=== PATIENT | male | born 1955 | race Caucasian/White ===

== ENCOUNTER 2019-11-18 21:06 | Inpatient (IN) | payer MEDICAID ==
[~2019-11-18] VITALS: Ht 157.5 cm; Wt 52.6 kg
[2019-11-18 22:47] VITALS: BP 139/67
--- NOTE | 2019-11-18 23:00 | NUR ---
BEHAVIORAL HEALTH CONSULTANT NOTES: Pt transferred from [facility] via gurney accompanied by 2 seo marketing specialist. Pt transferred to bed, skin check done, head to toe assessment done. Pt refused bed bath at this time. A&Ox2, Brazilian speaking. Understands very little Czech. On room air, tolerating well. No SOB or resp distress noted. Breathing even and unlabored. RFA #22 patent and flushed. Dressing c/d/i. Pt admitted w/ zapata, patent and draining urine via gravity. Pt came w/ left calceneal and pelvic fractures. Per RN at [facility], no surgery at this time. Pt stated he is suicidal, with no plans as of now. kaiako kura tuarua and Dr. Ozuna made aware. VS: BP 98.9, P 88, RR 18, O2 99%, T 98.9. Safety measures in place. Will continue to monitor. Addendum: 11/19/19 at 0131 by MIGUEL TOMLIN RN On isolation for R/o TB
--- NOTE | 2019-11-18 23:20 | NUR ---
RN NOTE: Upon belongings check, pt noted to have $78.00 in tim. Pt refused to put in safe w/ underground supervisor. Stated he wants to keep it on his person. Pt came in with belonging bag with soiled, soaking wet clothes. Per pt, "ok to throw away dirty clothes because they're also ripped".
[2019-11-19] MEDS ORDERED: ONDANSETRON HCL/PF 4 MG/2 ML VIAL IVP PRN
[2019-11-19] MEDS ORDERED: ACETAMINOPHEN 325 MG TABLET PO PRN
[2019-11-19] MEDS ORDERED: MAGNESIUM HYDROXIDE 30 ML UDC PO PRN
[2019-11-19] MEDS ORDERED: MAG HYDROX/AL HYDROX/SIMETH 30 ML UDC PO PRN
[2019-11-19] MEDS ORDERED: Z GUARD REMEDY 2 OZ OINT TP PRN
[2019-11-19 04:00] VITALS: BP 135/61
[2019-11-19] MEDS ORDERED: ZOSYN IVPB 3.375 G in IV D5W 50ml IV ONE (04:00)
[2019-11-19] MEDS ORDERED: PIPERACILLIN /TAZOBACTAM 3.375 G VIAL IV ONE (04:13)
--- NOTE | 2019-11-19 05:46 | NUR ---
RN NOTE: Pt noted to be playing with his poop, throwing it on the floor and smearing it on self and sheets. Educated pt on appropriate behavior and use of the call light when he needs to. Confirmed understanding. Will continue to monitor.
--- NOTE | 2019-11-19 06:53 | NUR ---
RN CLOSING NOTES: No acute changes noted throughout shift. On isolation for R/O TB. Remains on room air. No SOB or resp distress noted. Breathing even and unlabored. IV site on RFA #22 patent and flushed. Dressing c/d/i. Kept clean/dry. All due meds given as ordered. Safety measures in place. Will endorse to oncoming nurse for PREM.
[2019-11-19 07:57] LABS: BASOPHILS % (AUTO) 0.3 % (0.0-2.0); HEMATOCRIT 25 % (39-51); HEMOGLOBIN 8.4 g/dL (13.5-17.5); LYMPHOCYTES # (AUTO) 1.5 /CMM (0.8-4.8); LYMPHOCYTES % (AUTO) 10.6 % (20.0-44.0); MEAN CORPUSCULAR HGB CONC 33 g/dl (31.0-36.0); MEAN CORPUSCULAR VOLUME 95 fL (80-96); MONOCYTES # (AUTO) 1.4 /CMM (0.1-1.30); MONOCYTES % (AUTO) 9.5 % (2.0-12.0); NEUTROPHILS # (AUTO) 11.3 /CMM (1.8-8.9); NEUTROPHILS % (AUTO) 78.6 % (43.0-81.0); PLATELET COUNT (AUTO) 231 /CMM (150-450); RED BLOOD CELL COUNT(AUTO) 2.64 MIL/uL (4.5-6.0); WHITE BLOOD COUNT (AUTO) 14.3 K/uL (4.3-11.0)
--- NOTE | 2019-11-19 08:00 | NUR ---
RN Opening note A&Ox2, Korean speaking. Understands very little Luxembourgish. On room air, tolerating well. No SOB or respiratory distress noted. Breathing even and unlabored. RFA #22 patent and flushed. Dressing clean and dry. Breakfast taken with good appetite. Pt w/ zapata cath, patent and draining urine via gravity. Denies any pain or discomfort. Safety measures intact. Will cont to monitor
[2019-11-19 08:22] LABS: CALCIUM, SERUM 8.4 mg/dL (8.5-10.1); MAGNESIUM 2.4 mg/dL (1.8-2.4); PHOSPHORUS 3.5 mg/dL (2.5-4.9); POTASSIUM 4.6 mmol/L (3.5-5.1)
[2019-11-19] MEDS: NICOTINE PATCH (14MG) 14 MG PATCH.TD24 TD SCH (09:42)
[2019-11-19 12:00] VITALS: BP 143/71
[2019-11-19] MEDS: PIPERACILLIN /TAZOBACTAM 4.5 G in IV D5W 50 ML IV SCH ×3 (13:53→23:26)
[2019-11-19] MEDS: HYDROCODONE/APAP 5/325MG TABLET PO PRN (13:54)
--- NOTE | 2019-11-19 19:30 | NUR ---
RN OPENING NOTE RECEIVED PATIENT IN BED, AO X 2-3, ANSWERS QUESTIONS APPROPRIATELY. ASKED IF HE STILL WANTS TO HURT HIS SELF, STATED NO. PATIENT IN NO S/SX OF ACUTE DISTRESS AT THIS TIME. NO SOB NOTED. PATIENT'S BREATHING IS EVEN AND UNLABORED, SATURATING >95% ON ROOM AIR, HR IS 89. NOTED IV SITE AT RFA G22 LEAKING, REMOVED AND REINSERTED ANOTHER IV LINE AT LEFT HAND G20, ASEPTIC TECHNIQUE WAS OBSERVED. STEVENS CATHETER CONNECTED TO URINE BAG IN PLACE, DRAINING TO A CLEAR, YELLOWISH URINE. NOTED LEFT FOOT WITH SPLINT AND IN FLEXED POSITION. SAFETY MEASURES IMPLEMENTED PER PROTOCOL. PATIENT BED ALARM IS ON. HEAD OF BED ELEVATED. BED IS LOCKED, IN LOWEST POSITION AND SIDE RAILS UP. CALL LIGHT WITHIN REACH OF THE PATIENT. WILL CONTINUE TO MONITOR AND REASSESS FOR ANY CHANGES.
[2019-11-19 20:00] VITALS: BP 130/70
[2019-11-20] MEDS: HYDROCODONE/APAP 5/325MG TABLET PO PRN ×3 (02:35→10:56)
[2019-11-20 04:00] VITALS: BP 138/72
[2019-11-20] MEDS: PIPERACILLIN /TAZOBACTAM 4.5 G in IV D5W 50 ML IV SCH ×3 (05:18→17:15)
--- NOTE | 2019-11-20 07:10 | NUR ---
RN CLOSING NOTE PATIENT REMAINS IN ROOM RESTING COMFORTABLY.NO SIGNS OF RESPIRATORY DISTRESS ON RA;TOLERATTING WELL SATURATING >95% SP02. NS INFUSING AT TKO ON THE LEFT HAND. PATIENT IS CLEAN, DRY AND COMFORTABLE THROUGHOUT THE SHIFT. ALL DUE MEDS ADMINISTERED ORDERED. SAFETY MEASURES IMPLEMENTED, NEGATIVE PRESSURE/AIRBORNE PRECAUTIONS MAINTAINED. ENDORSED TO CHARLIE BOLDEN FOR CONTINUATION OF CARE.
--- NOTE | 2019-11-20 07:30 | NUR ---
RN OPENING NOTE PATIENT REMAINS IN ROOM RESTING COMFORTABLY IN BED.NO SIGNS OF RESPIRATORY DISTRESS ON RA;TOLERATING WELL SATURATING >95% SP02. NS INFUSING AT TKO ON THE LEFT HAND. PATIENT IS CLEAN, DRY AND COMFORTABLE. SAFETY MEASURES IMPLEMENTED, NEGATIVE PRESSURE/AIRBORNE PRECAUTIONS MAINTAINED. WILL CONT TO MONITOR
[2019-11-20 07:38] LABS: BASOPHILS % (AUTO) 0.4 % (0.0-2.0); EOSINOPHILS % (AUTO) 2.2 % (0.0-6.0); HEMATOCRIT 28 % (39-51); HEMOGLOBIN 9.3 g/dL (13.5-17.5); LYMPHOCYTES # (AUTO) 2.2 /CMM (0.8-4.8); LYMPHOCYTES % (AUTO) 17.1 % (20.0-44.0); MEAN CORPUSCULAR HGB CONC 33 g/dl (31.0-36.0); MEAN CORPUSCULAR VOLUME 95 fL (80-96); MONOCYTES # (AUTO) 1.4 /CMM (0.1-1.30); MONOCYTES % (AUTO) 10.5 % (2.0-12.0); NEUTROPHILS % (AUTO) 69.8 % (43.0-81.0); PLATELET COUNT (AUTO) 325 /CMM (150-450); RED BLOOD CELL COUNT(AUTO) 2.99 MIL/uL (4.5-6.0); WHITE BLOOD COUNT (AUTO) 12.9 K/uL (4.3-11.0)
[2019-11-20 08:00] VITALS: BP 133/69
[2019-11-20 08:01] LABS: CALCIUM, SERUM 8.7 mg/dL (8.5-10.1); CREATININE 0.9 mg/dL (0.6-1.3); MAGNESIUM 2.4 mg/dL (1.8-2.4); PHOSPHORUS 4.7 mg/dL (2.5-4.9); POTASSIUM 4.3 mmol/L (3.5-5.1)
[2019-11-20] MEDS: NICOTINE PATCH (14MG) 14 MG PATCH.TD24 TD SCH (10:55)
[2019-11-20 12:00] VITALS: BP 130/68
[2019-11-20] MEDS: MORPHINE SULFATE INJ 2 MG/ML DISP.SYRIN IV PRN ×2 (16:06→20:59)
--- NOTE | 2019-11-20 19:21 | NUR ---
RN CLOSING NOTES: No acute changes noted throughout shift. On isolation for R/O TB. Remains on room air. No SOB or respirotory distress noted. Breathing even and unlabored. Nguyen cath draining with yellow urine. IV site on left hand patent and flushed. Dressing c/d/i. Kept clean/dry. All due meds given as ordered. Dinner taken with good appetite. Safety measures in place. endorsed to night custodian nurse Emiliano .
[2019-11-20 20:00] VITALS: BP 139/69
[2019-11-20 22:00] VITALS: BP 139/69
[2019-11-21] MEDS: PIPERACILLIN /TAZOBACTAM 4.5 G in IV D5W 50 ML IV SCH ×2 (00:10→05:14)
--- NOTE | 2019-11-21 03:57 | NUR ---
RN notes In bed watching TV with no distress noted, breathing even and unlabored. On room air with [id number] o 100%, tolerating well. Alert with episodes of confusion. Complaint of foot pain, morphine adminstered x 2, with relief. No significant change of condition. Needs attended. Kept clean and dry. Will endorse to am shift for continuity of care.
[2019-11-21 04:00] VITALS: BP 126/64
[2019-11-21] MEDS: MORPHINE SULFATE INJ 2 MG/ML DISP.SYRIN IV PRN (04:32)
[2019-11-21 06:43] LABS: BASOPHILS # (AUTO) 0.1 /CMM (0.0-0.2); BASOPHILS % (AUTO) 0.6 % (0.0-2.0); EOSINOPHILS % (AUTO) 1.7 % (0.0-6.0); HEMATOCRIT 26 % (39-51); HEMOGLOBIN 8.8 g/dL (13.5-17.5); LYMPHOCYTES # (AUTO) 1.7 /CMM (0.8-4.8); LYMPHOCYTES % (AUTO) 12.8 % (20.0-44.0); MEAN CORPUSCULAR HGB CONC 33 g/dl (31.0-36.0); MEAN CORPUSCULAR VOLUME 94 fL (80-96); MONOCYTES # (AUTO) 1.4 /CMM (0.1-1.30); MONOCYTES % (AUTO) 10.2 % (2.0-12.0); NEUTROPHILS # (AUTO) 10.1 /CMM (1.8-8.9); NEUTROPHILS % (AUTO) 74.7 % (43.0-81.0); PLATELET COUNT (AUTO) 389 /CMM (150-450); RED BLOOD CELL COUNT(AUTO) 2.78 MIL/uL (4.5-6.0); WHITE BLOOD COUNT (AUTO) 13.6 K/uL (4.3-11.0)
[2019-11-21 07:28] LABS: CALCIUM, SERUM 8.6 mg/dL (8.5-10.1); CREATININE 0.9 mg/dL (0.6-1.3); MAGNESIUM 2.3 mg/dL (1.8-2.4); PHOSPHORUS 3.6 mg/dL (2.5-4.9); POTASSIUM 3.9 mmol/L (3.5-5.1)
--- NOTE | 2019-11-21 08:00 | NUR ---
MS RN OPENING NOTES Received Patient resting in bed. A/O x 3, Peruvian speaking. VS stable with no acute distress. Breathing even and unlabored on room air with no respiratory distress. Patient stated tolerable pain on left leg. Left Leg immobilizer in place. Will continue to monitor and will intervene as ordered. 20g PIV on left hand intact, patent and flushing well. Nguyen Cath in place and patent. Safety precautions in place. Bed locked and set to lowest position with side rails x 2 up. All needs rendered at this time. Call light within reach. Will continue to monitor.
--- NOTE | 2019-11-21 08:24 | NUR ---
WOUND CARE CONSULT: REVIEWED CHART, NURSING DOCUMENTATION AND PHOTOS WHICH INDICATE LEFT FOOT DISCOLORATION WITH INTACT BLISTERS AND MULTIPLE SKIN LESIONS TO CHEST AREA AND LESION TO PUBIC AREA, PRESENT ON ADMISSION. DEFER TO MD FOR SKIN LESIONS. RN TO DISCUSS WITH MD TODAY. RECOMMEND DPM CONSULT FOR LEFT FOOT. DR HILL NOTIFIED OF CONSULT REQUEST. RECOMMENDATIONS MADE FOR SKIN PROTECTION. DISCUSSED WITH NURSING STAFF. MD IN AGREEMENT WITH PLAN OF CARE.
[2019-11-21] MEDS: NICOTINE PATCH (14MG) 14 MG PATCH.TD24 TD SCH (09:51)
[2019-11-21] MEDS ORDERED: PIPERACILLIN /TAZOBACTAM 3.375 G in IV D5W 100 ML IV SCH (13:00)
[2019-11-21] MEDS: HYDROCODONE/APAP 5/325MG TABLET PO PRN ×2 (13:31→19:49)
--- NOTE | 2019-11-21 18:33 | NUR ---
MS RN CLOSING NOTES Patient resting in bed. A/O x 3, French speaking. VS stable with no acute distress. Breathing even and unlabored on room air with no respiratory distress. Patient stated tolerable pain on left leg. Left Leg immobilizer in place. 20g PIV on left hand intact, patent and flushing well. Nguyen Cath in place and patent. Safety precautions in place. Bed locked and set to lowest position with side rails x 2 up. All needs rendered at this time. Call light within reach. Will endorse plan of care to oncoming shift.
--- NOTE | 2019-11-21 19:20 | NUR ---
RN OPENING NOTES RECEIVED PT RESTING IN BED. IN ISOLATION ROOM, AIRBORNE PRECAUTIONS IN PLACE R/O TB. PT SPEAKS PRIMARILY IRISH. COIN MACHINE ASSEMBLER UTILIZED. A/O X 2-3. PT OFTEN IS CONFUSED AND NEEDS REDIRECTION/REORIENTATION. ON ROOM AIR, NO SIGNS OR SYMPTOMS OF SOB OR RESP DISTRESS. LEFT LEG IS IMMOBILIZED. IV SITE LEFT HAND, FLUSHED AND PATENT. STEVENS CATHETER IN PLACE, DRAINING DARK YELLOW URINE. FREE OF SEDIMENT AND ODOR. PT HAS MONEY IN A PLASTIC BAG, WILL NOT LET ME COUNT IT. BUT SAYS THERES $83, BILLS AND COINS NOTED. PT IS ASKING FOR JELLO AND PAIN MEDICATION FOR LEG. BED LOCKED IN LOWEST POSITION WITH BED ALARM ON. CALL LIGHT WITHIN REACH. WILL CONTINUE TO MONITOR.
--- NOTE | 2019-11-21 19:52 | NUR ---
PT REQUEST PAIN MEDS FOR LEFT LEG/HEEL. C/O 11/18. REQUESTS [facility].
[2019-11-21 20:00] VITALS: BP 132/61
[2019-11-22] MEDS: HYDROCODONE/APAP 5/325MG TABLET PO PRN ×3 (02:43→21:51)
[2019-11-22 03:07] LABS: HIV SCRN 4G wRFX Non Reactive (Non Reactive)
[2019-11-22 04:00] VITALS: BP 146/67
--- NOTE | 2019-11-22 04:03 | NUR ---
WOUND TREATMENT PERFORMED ORDERED. ANOTHER ADRIAN REQUESTED PAIN C/O 08/18. WILL CONTINUE TO MONITOR.
[2019-11-22 06:52] LABS: CALCIUM, SERUM 8.3 mg/dL (8.5-10.1); CREATININE 0.9 mg/dL (0.6-1.3); MAGNESIUM 2.3 mg/dL (1.8-2.4); PHOSPHORUS 3.3 mg/dL (2.5-4.9); POTASSIUM 4.4 mmol/L (3.5-5.1)
[2019-11-22 06:53] LABS: BASOPHILS # (AUTO) 0.1 /CMM (0.0-0.2); BASOPHILS % (AUTO) 0.7 % (0.0-2.0); EOSINOPHILS % (AUTO) 2.1 % (0.0-6.0); HEMATOCRIT 25 % (39-51); HEMOGLOBIN 8.2 g/dL (13.5-17.5); LYMPHOCYTES # (AUTO) 1.9 /CMM (0.8-4.8); LYMPHOCYTES % (AUTO) 14.4 % (20.0-44.0); MEAN CORPUSCULAR HGB CONC 33 g/dl (31.0-36.0); MEAN CORPUSCULAR VOLUME 93 fL (80-96); MONOCYTES # (AUTO) 1.3 /CMM (0.1-1.30); MONOCYTES % (AUTO) 9.9 % (2.0-12.0); NEUTROPHILS # (AUTO) 9.8 /CMM (1.8-8.9); NEUTROPHILS % (AUTO) 72.9 % (43.0-81.0); PLATELET COUNT (AUTO) 454 /CMM (150-450); RED BLOOD CELL COUNT(AUTO) 2.66 MIL/uL (4.5-6.0); WHITE BLOOD COUNT (AUTO) 13.5 K/uL (4.3-11.0)
--- NOTE | 2019-11-22 07:41 | NUR ---
RN CLOSING NOTES PT IS RESTING IN BED. STILL IN AIRBORNE, NEG AIR FLOW ROOM. PENDING TB RESULTS. STILL ON ROOM AIR SATURATING WELL NO SIGNS OF SOB OR RESP DISTRESS AT THIS TIME. STILL A/O X2 AND STILL CONFUSED AT TIMES. NEEDS REORIENTATION. CITIZEN OF [place] SPEAKING PRIMARILY. CAN UNDERSTAND SOME ITALIAN. AIR TRAFFIC SUPERVISOR STILL USED. BED IS LOCKED IN LOWEST POSITION WILL CONTINUE TO MONITOR.
[2019-11-22] MEDS: NICOTINE PATCH (14MG) 14 MG PATCH.TD24 TD SCH (08:06)
--- NOTE | 2019-11-22 08:16 | NUR ---
RN OPENING NOTE Patient is resting in bed, A/O x2, showing no signs of acute distress or SOB, stable on RA. IV line in the the left hand #20g is clean and intact flushing well. Patient's left leg is immobilized at this time, c/o pain 09/18. Bed is in lowest position, side rails x3 in upright position, call light is within reach, fall safety and aspiration precautions enforced. Isolation precautions in place for r/o TB. Will continue with plan of care.
--- NOTE | 2019-11-22 10:30 | NUR ---
RN NOTE QTF GOLD POSITIVE RESULT Notified Dr. Sander CLEMENTE and [facility] infection control that patient is positive for TB quantiferon gold. Will call Dr. Negron ID. Charge nurse is aware. Will continue with plan of care.
--- NOTE | 2019-11-22 11:57 | NUR ---
Manager R D met with patient today to complete a psychosocial assessment. Reason for assessment is patient reportedly homeless. Per RN Note, patient is alert and oriented x2. SW to attempt to speak with the patient as patient is primarily Senegalese speaking and Senegalese is this SW primary language. Patient is positive for TB quanitfermichelle gold. SW to attempt to conduct this assessment following TB protocols. Addendum: 11/22/19 at 1205 by MICKY STALLINGS SW SW unable to speak to patient at this time. Will attempt to speak with patient again later in the day or tomorrow 11/22.
[2019-11-22 12:00] VITALS: BP 130/72
[2019-11-22] MEDS: MORPHINE SULFATE INJ 2 MG/ML DISP.SYRIN IV PRN ×2 (12:35→18:30)
--- NOTE | 2019-11-22 19:20 | NUR ---
RN CLOSING NOTE Patient is resting in bed, A/O x2, showing no signs of acute distress or SOB, stable on RA. IV line in the the left hand #20g is clean and intact flushing well. Patient's left leg is immobilized at this time. All patient needs met, all due medications given, patient kept clean and dry throughout shift. All patient needs met, all due medications given, patient kept clean and dry throughout shift. Endorsed to operations supervisor 2nd shift RN to follow up with RT to obtain induced sputum culture #3. Bed is in lowest position, side rails x3 in upright position, call light is within reach, fall safety and aspiration precautions enforced. Isolation precautions in place for TB. Will endorse to operations supervisor 2nd shift.
--- NOTE | 2019-11-22 19:40 | NUR ---
RN OPENING NOTE RECEIVED PATIENT IN BED RESTING ALERT ORIENTED X2 VERBALLY RESPONSIVE IRISH SPEAKER,ON MED SURG MONITORING,IV SITE IS ON LEFT HAND PATENT INTACT FLUSHED,ON ROOM AIR 97% LEFT LEG IMMOBILIZED,ON STEVENS CATHETER, URINE DRAINING YELLOW AND CLEAR,BED IN LOW POSITION AND LOCKED CALL LIGHT WITHIN REACH,CONTINUE TO MONITOR.
[2019-11-22 20:00] VITALS: BP 125/71
[2019-11-23] MEDS: MORPHINE SULFATE INJ 2 MG/ML DISP.SYRIN IV PRN ×2 (02:09→15:58)
--- NOTE | 2019-11-23 02:09 | NUR ---
RN NOTE MORPHINE IV 1ML PRN GIVEN FOR PAIN 09/18 CONTINUE TO MONITOR.
[2019-11-23 04:00] VITALS: BP 124/68
[2019-11-23] MEDS: HYDROCODONE/APAP 5/325MG TABLET PO PRN ×4 (05:51→23:29)
--- NOTE | 2019-11-23 05:51 | NUR ---
RN NOTE NORCO PRN GIVEN FOR PAIN 09/18 CONTINUE TO MONITOR
[2019-11-23 06:17] LABS: BASOPHILS # (AUTO) 0.1 /CMM (0.0-0.2); BASOPHILS % (AUTO) 0.9 % (0.0-2.0); EOSINOPHILS % (AUTO) 3.1 % (0.0-6.0); HEMATOCRIT 29 % (39-51); HEMOGLOBIN 9.5 g/dL (13.5-17.5); LYMPHOCYTES # (AUTO) 2.4 /CMM (0.8-4.8); LYMPHOCYTES % (AUTO) 19.9 % (20.0-44.0); MEAN CORPUSCULAR HGB CONC 33 g/dl (31.0-36.0); MEAN CORPUSCULAR VOLUME 93 fL (80-96); MONOCYTES % (AUTO) 7.9 % (2.0-12.0); NEUTROPHILS # (AUTO) 8.4 /CMM (1.8-8.9); NEUTROPHILS % (AUTO) 68.2 % (43.0-81.0); PLATELET COUNT (AUTO) 559 /CMM (150-450); RED BLOOD CELL COUNT(AUTO) 3.11 MIL/uL (4.5-6.0); WHITE BLOOD COUNT (AUTO) 12.3 K/uL (4.3-11.0)
--- NOTE | 2019-11-23 06:45 | NUR ---
RN CLOSING NOTE PATIENT REMAINS ON ALERT ORIENTED X2 VERBALLY RESPONSIVE NO SOB NOT ACUTE DISTRESS NOTED,ON ROOM AIR 99% IV SITE IS ON LEFT HAND INTACT PATENT FLUSHED,ON STEVENS CATHETER,URINE DRAINING YELLOW CLEAR ON MED SURG MONITORING,PAIN MEDS GIVEN PRN,KEPT CLEAN AND DRY ALL THE TIME,KEPT CALL LIGHT WITHIN REACH,IMPLEMENTED SAFETY MEASURE,ALL NEEDS MET,ENDORSE NEXT COMING SHIFT FOR CONTINUATION OF CARE,
[2019-11-23 06:49] LABS: CALCIUM, SERUM 9.2 mg/dL (8.5-10.1); MAGNESIUM 2.5 mg/dL (1.8-2.4); PHOSPHORUS 3.7 mg/dL (2.5-4.9); POTASSIUM 3.9 mmol/L (3.5-5.1)
--- NOTE | 2019-11-23 07:30 | NUR ---
TAX COMPLIANCE AGENT OPENING NOTES RECEIVED PATIENT IN BED, ALERT & ORIENTED X2 VERBALLY RESPONSIVE SLOVENIAN SPEAKER. NOT IN ANY ACUTE DISTRESS AT THIS TIME. IV SITE IS ON LEFT HAND PATENT INTACT FLUSHED,ON ROOM AIR 100% LEFT LEG IMMOBILIZED,ON STEVENS CATHETER, URINE DRAINING YELLOW AND CLEAR,BED IN LOW POSITION AND LOCKED CALL LIGHT WITHIN REACH, CONTINUE TO MONITOR.
[2019-11-23] MEDS ORDERED: SODIUM CL FOR INHALATION 3% 15 ML VIAL.NEB IH ONE (08:00)
[2019-11-23] MEDS: NICOTINE PATCH (14MG) 14 MG PATCH.TD24 TD SCH (10:49)
[2019-11-23 12:00] VITALS: BP 123/62
--- NOTE | 2019-11-23 13:54 | NUR ---
LAUREL FROM [facility] NOTIFIED REGARDING PENDING AFB TEST AND POSITIVE QFT TEST FOR PT.
--- NOTE | 2019-11-23 14:56 | NUR ---
SW contacted Vikash Weaver to set up a time for patients RN to assist this SW in conducting a social work assessment via teletherapy. Per Vikash Weaver, [facility] does not have an Ipad available at this moment however Vikash Weaver stated that Vikash BOLDEN work phone has FaceTime and it can be used to communicate with the patient. SW and Vikash Weaver agreed that SW would conduct this assessment at 2:30pm.
--- NOTE | 2019-11-23 16:18 | NUR ---
Patient is a 64-year-old male. Patient is homeless. Due to patient being on TB respiratory isolation this SW attempted to complete marriage and family social worker assessment via video conference in patients primary language, Slovenian. SW was unable to gather information from the patient to complete this assessment due to the patient not being responsive to social work questions. Patient appeared to look confused and disheveled. Patient had a flat affect however he was making direct eye contact with this SW on the video call. Patient did not attempt to speak. SW to follow up with patient tomorrow to attempt to complete marriage and family social worker consult. SW to follow up with accounts manager Amy regarding a phone in the patients room.
--- NOTE | 2019-11-23 17:39 | NUR ---
FOLLOW-UP WITH [phone] AFB STAINS STILL PENDING.
--- NOTE | 2019-11-23 17:57 | NUR ---
BLOOD SUGAR CHECKED PER GLUCOMETER READING OF 120. GLUCOMETER UNABLE TO TRANSMIT RESULTS TO CHART. CN AWARE.
--- NOTE | 2019-11-23 18:42 | NUR ---
ORDER EXPEDITER CLOSING NOTES Patient remains alert & awake x2, with no signs of acute distress or SOB, stable. IV line in the the left hand #20g is intact and flushing well. Patient's left leg is immobilized at this time. All patient needs met, all due medications given, patient kept clean and dry throughout shift. All patient needs met. Bed is in lowest position, side rails x3 in upright position, call light is within reach, fall safety and aspiration precautions enforced. Isolation precautions in place for TB. Will endorse to next shift
--- NOTE | 2019-11-23 19:30 | NUR ---
RN OPENING NOTE RECEIVED PATIENT IN BED, AO X 2-3, ANSWERS QUESTIONS APPROPRIATELY. PATIENT ONLY UNDERSTANDS AND SPEAKS VIETNAMESE, SAMANTHA CHUCKY WAS ABLE TO HELP WITH TRANSLATION, ASKED IF HE STILL WANTS TO HURT HIS SELF, STATED NO. PATIENT IN NO S/SX OF ACUTE DISTRESS AT THIS TIME. NO SOB NOTED. PATIENT'S BREATHING IS EVEN AND UNLABORED, SATURATING >95% ON ROOM AIR, HR IS 87. NOTED IV SITE AT LEFT HAND G20, PATENT AND FLUSHING WELL. STEVENS CATHETER CONNECTED TO URINE BAG IN PLACE, DRAINING TO A CLEAR, YELLOWISH URINE. NOTED LEFT FOOT WITH SPLINT AND IN FLEXED POSITION. SAFETY MEASURES IMPLEMENTED PER PROTOCOL. PATIENT BED ALARM IS ON. HEAD OF BED ELEVATED. BED IS LOCKED, IN LOWEST POSITION AND SIDE RAILS UP. CALL LIGHT WITHIN REACH OF THE PATIENT. AIRBORNE ISOLATION/NEGATIVE PRESSURE MAINTAINED. WILL CONTINUE TO MONITOR AND REASSESS FOR ANY CHANGES.
[2019-11-23 20:00] VITALS: BP 127/68
[2019-11-24 04:00] VITALS: BP 115/50
[2019-11-24] MEDS: MORPHINE SULFATE INJ 2 MG/ML DISP.SYRIN IV PRN ×2 (04:20→12:45)
[2019-11-24] MEDS: IV NS 0.9% 250 ML IV PRN (06:21)
[2019-11-24 06:40] LABS: BASOPHILS # (AUTO) 0.1 /CMM (0.0-0.2); BASOPHILS % (AUTO) 0.8 % (0.0-2.0); HEMATOCRIT 25 % (39-51); HEMOGLOBIN 8.5 g/dL (13.5-17.5); LYMPHOCYTES % (AUTO) 20.2 % (20.0-44.0); MEAN CORPUSCULAR HGB CONC 34 g/dl (31.0-36.0); MEAN CORPUSCULAR VOLUME 94 fL (80-96); MONOCYTES # (AUTO) 0.8 /CMM (0.1-1.30); MONOCYTES % (AUTO) 7.5 % (2.0-12.0); NEUTROPHILS # (AUTO) 6.9 /CMM (1.8-8.9); NEUTROPHILS % (AUTO) 67.5 % (43.0-81.0); PLATELET COUNT (AUTO) 620 /CMM (150-450); RED BLOOD CELL COUNT(AUTO) 2.72 MIL/uL (4.5-6.0); WHITE BLOOD COUNT (AUTO) 10.2 K/uL (4.3-11.0)
[2019-11-24 07:22] LABS: CALCIUM, SERUM 8.7 mg/dL (8.5-10.1); CREATININE 0.8 mg/dL (0.6-1.3); MAGNESIUM 2.2 mg/dL (1.8-2.4); PHOSPHORUS 4.4 mg/dL (2.5-4.9); POTASSIUM 4.2 mmol/L (3.5-5.1)
--- NOTE | 2019-11-24 07:25 | NUR ---
RN OPENING NOTES RECEIVED PATIENT IN BED, AO X 2-3, ANSWERS PT UNDERSTANDS AND SPEAKS KOREAN WITH LITTLE NEPALI. SAMANTHA HUTTON HELPS WITH TRANSLATION. PT IS IN ROOM AIR, SATURATING @99%. NO SOB OR ANY SIGNS OF ACUTE RESPIRATORY DISTRESS AT THIS TIME. IV SITE AT LEFT HAND #20, INTACT, PATENT AND FLUSHED. STEVENS CATH CONNECTED TO URINE BAG DRAINING TO YELLOWISH COLORED URINE. NOTED LEFT FOOT WITH SPLINT AND IN FLEXED POSITION. SAFETY MEASURES OBSERVED. CALL LIGHT WITHIN REACH. BED LOCKED AND AT LOWEST POSITION WITH SIDE RAILS UP. AIRBORNE ISOLATION/NEGATIVE PRESSURE MAINTAINED. WILL CONTINUE TO MONITOR.
--- NOTE | 2019-11-24 07:34 | NUR ---
RN CLOSING NOTE PATIENT REMAINS IN ROOM. NO SIGNS OF RESPIRATORY DISTRESS. SATURATING >95 ON ROOM AIR. SAFETY MEASURES IMPLEMENTED, BED IN LOWEST POSITION, LOCKED, SIDE RAILS UP, CALL LIGHT WITHIN REACH. ALL NEEDS AND ORDERS ADDRESSED DURING THE SHIFT. ALL DUE MEDS ADMINISTERED ORDERED & SCHEDULED, PATIENT TOLERATED WELL. PATIENT KEPT CLEAN AND COMFORTABLE WITHIN THE SHIFT. ENDORSED TO KENYA BOLDEN FOR CONTINUITY OF CARE.
[2019-11-24] MEDS: HYDROCODONE/APAP 5/325MG TABLET PO PRN ×3 (10:00→20:17)
[2019-11-24] MEDS: NICOTINE PATCH (14MG) 14 MG PATCH.TD24 TD SCH (10:00)
[2019-11-24 12:00] VITALS: BP 111/58
--- NOTE | 2019-11-24 15:07 | NUR ---
SW followed up regarding a phone in the patients room with human relations professor Soon. SW will be connected with this patient when phone is working.
--- NOTE | 2019-11-24 15:57 | NUR ---
ARDEN spoke to Bianca from [facility] to inform her that patient has been admitted since November 14. Bianca to provide this information to patient's case technician at [facility] to hold bed. ARDEN also provided call back number if patient's case technician had any questions.
--- NOTE | 2019-11-24 15:57 | NUR ---
SW spoke with the patient on patients room line. Patient is a 64-year-old male. Patient was originally admitted to [facility] on 11/15/2019 and was transferred to [facility] on 11/18/2019. Patient is alert and oriented x4 (time, self, place, situation). SW conducted this assessment in North Korean, patients primary language. Patient confirmed that he has been homeless for approximately 2 years and previously has been staying at [facility] . Patient is scared that he has lost his placement at [facility] because he has been gone for too long. SW informed patient that she will call [facility] to inform them that the patient is admitted at [facility]. Patient reports that he does not receive government aid like food stamps or general relief. Per patient, he does have Medical. SW to inform FS Property Clerk Gracia about this. 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 Patient reports no drug use. Patient reports smoking cigarettes 6-7 a day. Patient denies auditory and visual hallucination. Patient denies suicidal and homicidal ideation. Patient stated that several people have asked him those questions already. SW informed the patient that this is information needed for this SW assessment and patient understood. Patient is open to being placed at a prison facility, board and care, etc. upon MD recommendations. Plan: ARDEN to follow up with [facility] to request a hold for patients bed. SW to provide nursing staff with spare clothes for the patient. SW to speak with Gracia from [facility] and inform her patient reports that he does have Medical. SW to inform case management about patient bed at [facility] following call to [facility].
--- NOTE | 2019-11-24 15:59 | NUR ---
ARDEN contacted Gracia from [facility] [phone] and left voicemail informing Gracia that patient reports to have Medical.
--- NOTE | 2019-11-24 16:01 | NUR ---
SW informed Case Management that patient has a bed hold at [facility] to Bianca from [facility] .
--- NOTE | 2019-11-24 19:30 | NUR ---
RN NOTE RECEIVED PATIENT IN BED, AO X 2-3, ANSWERS QUESTIONS APPROPRIATELY. PATIENT ONLY UNDERSTANDS AND SPEAKS TURKISH, SAMANTHA GROVES WAS ABLE TO HELP WITH TRANSLATION, ASKED IF HE STILL WANTS TO HURT HIS SELF, STATED NO. PATIENT IN NO S/SX OF ACUTE DISTRESS AT THIS TIME. NO SOB NOTED. PATIENT'S BREATHING IS EVEN AND UNLABORED, SATURATING >95% ON ROOM AIR, HR IS 96. NOTED IV SITE AT LEFT HAND G20, PATENT AND FLUSHING WELL. STEVENS CATHETER CONNECTED TO URINE BAG IN PLACE, DRAINING TO A CLEAR, YELLOWISH URINE. NOTED LEFT FOOT WITH SPLINT AND IN FLEXED POSITION. SAFETY MEASURES IMPLEMENTED PER PROTOCOL. PATIENT BED ALARM IS ON. HEAD OF BED ELEVATED. BED IS LOCKED, IN LOWEST POSITION AND SIDE RAILS UP. CALL LIGHT WITHIN REACH OF THE PATIENT. AIRBORNE ISOLATION/NEGATIVE PRESSURE MAINTAINED. WILL CONTINUE TO MONITOR AND REASSESS FOR ANY CHANGES.
--- NOTE | 2019-11-24 19:39 | NUR ---
RN CLOSING NOTES PATIENT RESTING IN BED, AO X 2-3, ANSWERS PT UNDERSTANDS AND SPEAKS EGYPTIAN WITH LITTLE LUXEMBOURGER. SAMANTHA HUTTON HELPS WITH TRANSLATION. PT IS IN ROOM AIR, SATURATING @99%. NO SOB OR ANY SIGNS OF ACUTE RESPIRATORY DISTRESS AT THIS TIME. IV SITE AT LEFT HAND #20, INTACT, PATENT AND FLUSHED. STEVENS CATH CONNECTED TO URINE BAG DRAINING TO YELLOWISH COLORED URINE. NOTED LEFT FOOT WITH SPLINT AND IN FLEXED POSITION. NO PAIN REPORTED AT THIS TIME. NO SIGNIFICANT CHANGES SAFETY MEASURES OBSERVED. CALL LIGHT WITHIN REACH. BED LOCKED AND AT LOWEST POSITION WITH SIDE RAILS UP. AIRBORNE ISOLATION/NEGATIVE PRESSURE MAINTAINED. WILL ENDORSE TO TRAFFIC LIEUTENANT FOR PREM
[2019-11-24 20:00] VITALS: BP_SYST 135; BP_SYST 137; BP_DIAS 70
[2019-11-25] MEDS: MORPHINE SULFATE INJ 2 MG/ML DISP.SYRIN IV PRN ×3 (00:42→23:30)
[2019-11-25 04:00] VITALS: BP 123/66
[2019-11-25] MEDS: HYDROCODONE/APAP 5/325MG TABLET PO PRN ×2 (04:21→18:27)
[2019-11-25 05:54] LABS: BASOPHILS # (AUTO) 0.1 /CMM (0.0-0.2); BASOPHILS % (AUTO) 0.4 % (0.0-2.0); EOSINOPHILS % (AUTO) 2.6 % (0.0-6.0); HEMATOCRIT 25 % (39-51); HEMOGLOBIN 8.5 g/dL (13.5-17.5); LYMPHOCYTES # (AUTO) 1.9 /CMM (0.8-4.8); LYMPHOCYTES % (AUTO) 15.7 % (20.0-44.0); MEAN CORPUSCULAR HGB CONC 33 g/dl (31.0-36.0); MEAN CORPUSCULAR VOLUME 94 fL (80-96); MONOCYTES # (AUTO) 0.6 /CMM (0.1-1.30); MONOCYTES % (AUTO) 5.1 % (2.0-12.0); NEUTROPHILS # (AUTO) 9.2 /CMM (1.8-8.9); NEUTROPHILS % (AUTO) 76.2 % (43.0-81.0); PLATELET COUNT (AUTO) 664 /CMM (150-450); RED BLOOD CELL COUNT(AUTO) 2.71 MIL/uL (4.5-6.0)
[2019-11-25 06:41] LABS: CALCIUM, SERUM 8.4 mg/dL (8.5-10.1); CREATININE 0.9 mg/dL (0.6-1.3); MAGNESIUM 2.2 mg/dL (1.8-2.4); PHOSPHORUS 3.2 mg/dL (2.5-4.9); POTASSIUM 3.9 mmol/L (3.5-5.1)
--- NOTE | 2019-11-25 07:15 | NUR ---
RN OPENING NOTES RECEIVED PATIENT IN BED, AO X 2-3. PT UNDERSTANDS AND SPEAKS INDIAN WITH LITTLE GUATEMALAN. PT IS IN ROOM AIR, SATURATING @99%. NO SOB OR ANY SIGNS OF ACUTE RESPIRATORY DISTRESS AT THIS TIME. IV SITE AT LEFT HAND #20, INTACT, PATENT AND FLUSHED. STEVENS CATH CONNECTED TO URINE BAG DRAINING TO YELLOWISH COLORED URINE. NOTED LEFT FOOT WITH SPLINT AND IN FLEXED POSITION. SAFETY MEASURES OBSERVED. CALL LIGHT WITHIN REACH. BED LOCKED AND AT LOWEST POSITION WITH SIDE RAILS UP. AIRBORNE ISOLATION/NEGATIVE PRESSURE MAINTAINED. WILL CONTINUE TO MONITOR.
--- NOTE | 2019-11-25 07:27 | NUR ---
RN CLOSING NOTE PATIENT REMAINS IN ROOM. NO SIGNS OF RESPIRATORY DISTRESS. SATURATING >95 ON ROOM AIR. SAFETY MEASURES IMPLEMENTED, BED IN LOWEST POSITION, LOCKED, SIDE RAILS UP, CALL LIGHT WITHIN REACH. ALL NEEDS AND ORDERS ADDRESSED DURING THE SHIFT. ALL DUE MEDS ADMINISTERED ORDERED & SCHEDULED, PATIENT TOLERATED WELL. PATIENT KEPT CLEAN AND COMFORTABLE WITHIN THE SHIFT. ENDORSED TO MARY CARMEN BOLDEN FOR CONTINUATION OF CARE OF CARE.
[2019-11-25] MEDS: NICOTINE PATCH (14MG) 14 MG PATCH.TD24 TD SCH (09:00)
[2019-11-25] MEDS: IV NS 0.9% 250 ML IV PRN (11:40)
[2019-11-25 12:00] VITALS: BP 117/64
--- NOTE | 2019-11-25 14:01 | NUR ---
This SW received a call from Roseanne Elliott Case Work at [facility] / . Roseanne would be main point of contact for this patient. SW to provide this information to Case Management team as well.
[2019-11-25] MEDS ORDERED: LIDOCAINE 1%-EPI 1:100,000 20 ML VIAL TP ONE (16:30)
[2019-11-25] MEDS ORDERED: SILVER NITRATE APPLICATOR 1 EA BOX TP ONE (16:30)
--- NOTE | 2019-11-25 16:30 | NUR ---
RN NOTES SKIN BIOPSY DONE AT BEDSIDE BY DR. SANTANA. SPECIMEN SENT TO LAB
--- NOTE | 2019-11-25 19:06 | NUR ---
RN CLOSING NOTE PT RESTING IN BED. NO SIGNS OF RESPIRATORY DISTRESS. ON ROOM AIR SATURATING @97%. SAFETY MEASURES OBSERVED. CALL LIGHT WITHIN REACH. BED LOCKED AND AT LOWEST POSITION WITH SIDE RAILS UP. ALL NEEDS ATTENDED DURING THE SHIFT. ALL DUE MEDS ADMINISTERED ORDERED. NO PAIN REPORTED AT THIS TIME. WILL ENDORSE TO NIGHT NURSE FOR PREM.
--- NOTE | 2019-11-25 19:55 | NUR ---
RN NOTE RECEIVED PT IN BED A/A/O X3. PT IS ON RA SATING 100%. NO SOB. PT HAS STEVENS DRAINING WELL. SAFETY MEASURE IN PLACE CALL LIGHT IN REACH, BED AT LOWEST POSITION AND LOCKED, SIDE RAILS UP X2.
[2019-11-25 20:00] VITALS: BP 125/69
[2019-11-26 04:00] VITALS: BP 134/67
[2019-11-26 06:54] LABS: BASOPHILS # (AUTO) 0.1 /CMM (0.0-0.2); BASOPHILS % (AUTO) 0.8 % (0.0-2.0); EOSINOPHILS % (AUTO) 2.5 % (0.0-6.0); HEMATOCRIT 26 % (39-51); HEMOGLOBIN 8.5 g/dL (13.5-17.5); LYMPHOCYTES # (AUTO) 2.1 /CMM (0.8-4.8); LYMPHOCYTES % (AUTO) 15.1 % (20.0-44.0); MEAN CORPUSCULAR HGB CONC 33 g/dl (31.0-36.0); MEAN CORPUSCULAR VOLUME 94 fL (80-96); MONOCYTES # (AUTO) 0.9 /CMM (0.1-1.30); MONOCYTES % (AUTO) 6.6 % (2.0-12.0); NEUTROPHILS # (AUTO) 10.4 /CMM (1.8-8.9); PLATELET COUNT (AUTO) 669 /CMM (150-450); RED BLOOD CELL COUNT(AUTO) 2.77 MIL/uL (4.5-6.0); WHITE BLOOD COUNT (AUTO) 13.9 K/uL (4.3-11.0)
[2019-11-26 07:15] LABS: CALCIUM, SERUM 8.8 mg/dL (8.5-10.1); CREATININE 0.9 mg/dL (0.6-1.3); MAGNESIUM 2.1 mg/dL (1.8-2.4); PHOSPHORUS 3.4 mg/dL (2.5-4.9)
--- NOTE | 2019-11-26 07:20 | NUR ---
RN NOTE PT REMAINED STABLE DURING MY SHIFT. REPORT GIVEN TO INCOMING SHIFT FOR PREM.
--- NOTE | 2019-11-26 07:25 | NUR ---
RN OPENING NOTES RECEIVED PT IN BED, A/O X 2-3. PT UNDERSTANDS AND SPEAKS CYMRO WITH LITTLE ST HELENIAN. PT IS IN ROOM AIR, SATURATING @99%. NO SOB OR ANY SIGNS OF ACUTE RESPIRATORY DISTRESS AT THIS TIME. IV SITE AT LEFT HAND #20, INTACT, PATENT AND FLUSHED. STEVENS CATH CONNECTED TO URINE BAG DRAINING TO YELLOWISH COLORED URINE. NOTED LEFT FOOT WITH SPLINT AND IN FLEXED POSITION. SAFETY MEASURES OBSERVED. CALL LIGHT WITHIN REACH. BED LOCKED AND AT LOWEST POSITION WITH SIDE RAILS UP. AIRBORNE ISOLATION/NEGATIVE PRESSURE MAINTAINED. WILL CONTINUE TO MONITOR.
[2019-11-26] MEDS: NICOTINE PATCH (14MG) 14 MG PATCH.TD24 TD SCH (09:48)
[2019-11-26 12:00] VITALS: BP 115/57
[2019-11-26] MEDS: HYDROCODONE/APAP 5/325MG TABLET PO PRN (17:29)
--- NOTE | 2019-11-26 18:54 | NUR ---
RN CLOSING NOTE PT RESTING IN BED. NO SIGNS OF RESPIRATORY DISTRESS. ON ROOM AIR SATURATING @99%. SAFETY MEASURES OBSERVED. CALL LIGHT WITHIN REACH. BED LOCKED AND AT LOWEST POSITION WITH SIDE RAILS UP. ALL NEEDS ATTENDED DURING THE SHIFT. ALL DUE MEDS ADMINISTERED ORDERED. NO PAIN REPORTED AT THIS TIME. WILL ENDORSE TO NIGHT NURSE FOR PREM.
--- NOTE | 2019-11-26 19:20 | NUR ---
RECEIVED PATIENT IN BED, AO X 2-3. PT UNDERSTANDS AND SPEAKS CAMEROONIAN WITH LITTLE WELSH. PT IS IN ROOM AIR, SATURATING @99%. NO SOB OR ANY SIGNS OF ACUTE RESPIRATORY DISTRESS AT THIS TIME. IV SITE AT LEFT HAND #20, INTACT, PATENT AND FLUSHED. STEVENS CATH CONNECTED TO URINE BAG DRAINING TO YELLOW COLORED URINE. LEFT FOOT WITH SPLINT AND IN FLEXED POSITION. SAFETY MEASURES OBSERVED. CALL LIGHT WITHIN REACH. BED LOCKED AND AT LOWEST POSITION WITH SIDE RAILS UP CALL LIGHT WITHIN REACH. AIRBORNE ISOLATION/NEGATIVE PRESSURE MAINTAINED R/O TUBERCULOSIS. WILL CONTINUE TO MONITOR.
[2019-11-26 20:00] VITALS: BP 137/66
[2019-11-27 04:00] VITALS: BP 136/83
[2019-11-27] MEDS: HYDROCODONE/APAP 5/325MG TABLET PO PRN ×3 (04:33→18:56)
--- NOTE | 2019-11-27 06:53 | NUR ---
RN NOTES PT ON BED ASLEEP, EASY TO WAKE UP NO SIGN AND SYMPTOMS OF DISTRESS, SPO2 99% NO SIGNIFICANT CHANGES ON CONDITION NOTED ALL NEEDS ATTENDED, NORCO LAST GIVEN AT 0400 FOR PAIN AND ITS EFFECTIVE PT LVL OF PAIN SUBSIDE, SAFETY MEASURE MAINTAINED BED ON LOWEST POSITION AND LOCKED SIDE RAILS UP CALL LIGHT WITHIN REACH LEFT LEG IMMOBILIZER STILL ON PLACE, STILL ON AIRBORNE PRECAUTION R/O KOCHS DISEASE WILL ENDORSE TO AM SHIFT NURSE
--- NOTE | 2019-11-27 07:30 | NUR ---
RN OPENING NOTES RECEIVED PT IN BED, A/O X 2. PT UNDERSTANDS AND SPEAKS LEBANESE WITH LITTLE INDONESIAN. PT IS ON ROOM AIR, SATURATING 99%. NO SOB OR ANY SIGNS OF ACUTE RESPIRATORY DISTRESS. IV SITE AT LEFT HAND 20 GAUGE, INTACT, PATENT AND FLUSHES EASILY. STEVENS CATH CONNECTED TO URINE BAG DRAINING TO YELLOWISH COLORED URINE. NOTED LEFT FOOT WITH SPLINT AND IN FLEXED POSITION. SAFETY MEASURES OBSERVED. CALL LIGHT WITHIN REACH. BED LOCKED AND AT LOWEST POSITION WITH SIDE RAILS UP. AIRBORNE ISOLATION/NEGATIVE PRESSURE MAINTAINED. WILL CONTINUE TO MONITOR.
[2019-11-27 08:00] VITALS: BP 123/64
[2019-11-27] MEDS: NICOTINE PATCH (14MG) 14 MG PATCH.TD24 TD SCH (08:35)
--- NOTE | 2019-11-27 11:15 | NUR ---
Discontinued isolation per MD order
[2019-11-27] MEDS: MORPHINE SULFATE INJ 2 MG/ML DISP.SYRIN IV PRN ×3 (14:01→23:30)
[2019-11-27 16:00] VITALS: BP 112/52
--- NOTE | 2019-11-27 19:13 | NUR ---
AFB negative x3, isolation d/c'd. SNF referral was sent to Maggie @ [facility] [phone] and patient is accepted for short term rehab. Addendum: 11/27/19 at 1914 by JACK ZAIDI RN Amended: Links added.
[2019-11-27 20:00] VITALS: BP 124/66
[2019-11-28 04:00] VITALS: BP 118/59
--- NOTE | 2019-11-28 05:26 | NUR ---
RN notes Alert and oriented, speaks nepalese and a little pashto. Resting comfortably in bed, awake with no apparent distress. Breathing even and unlabored. Room air well tolerated. Complained of generalized pain Morphine administered, with relief. Needs attended. Kept clean and dry. Will endorse to next shift for continuity of care.
[2019-11-28 06:51] LABS: BASOPHILS # (AUTO) 0.2 /CMM (0.0-0.2); BASOPHILS % (AUTO) 1.2 % (0.0-2.0); EOSINOPHILS % (AUTO) 2.9 % (0.0-6.0); HEMATOCRIT 29 % (39-51); HEMOGLOBIN 9.5 g/dL (13.5-17.5); LYMPHOCYTES % (AUTO) 15.4 % (20.0-44.0); MEAN CORPUSCULAR HGB CONC 33 g/dl (31.0-36.0); MEAN CORPUSCULAR VOLUME 93 fL (80-96); MONOCYTES # (AUTO) 0.8 /CMM (0.1-1.30); MONOCYTES % (AUTO) 5.7 % (2.0-12.0); NEUTROPHILS # (AUTO) 9.8 /CMM (1.8-8.9); NEUTROPHILS % (AUTO) 74.8 % (43.0-81.0); PLATELET COUNT (AUTO) 777 /CMM (150-450); RED BLOOD CELL COUNT(AUTO) 3.05 MIL/uL (4.5-6.0); WHITE BLOOD COUNT (AUTO) 13.2 K/uL (4.3-11.0)
--- NOTE | 2019-11-28 07:10 | NUR ---
RN OPENING NOTES RECEIVED PT IN BED, A/O X 2-3. PT UNDERSTANDS AND SPEAKS NAMIBIAN WITH LITTLE IRAQI. PT IS ON ROOM AIR, SATURATING 99%. NO SOB OR ANY SIGNS OF ACUTE RESPIRATORY DISTRESS. IV SITE @ MEKA #20 INTACT, PATENT AND FLUSHED. STEVENS CATH CONNECTED TO URINE BAG DRAINING TO YELLOWISH COLORED URINE. NOTED LEFT FOOT WITH SPLINT AND IN FLEXED POSITION. SAFETY MEASURES OBSERVED. CALL LIGHT WITHIN REACH. BED LOCKED AND AT LOWEST POSITION WITH SIDE RAILS UP. WILL CONTINUE TO MONITOR.
[2019-11-28 07:13] LABS: CALCIUM, SERUM 8.9 mg/dL (8.5-10.1); CREATININE 0.7 mg/dL (0.6-1.3); MAGNESIUM 2.1 mg/dL (1.8-2.4); PHOSPHORUS 3.9 mg/dL (2.5-4.9); POTASSIUM 4.1 mmol/L (3.5-5.1)
[2019-11-28] MEDS: NICOTINE PATCH (14MG) 14 MG PATCH.TD24 TD SCH (09:21)
[2019-11-28 12:00] VITALS: BP 120/58
[2019-11-28] MEDS: HYDROCODONE/APAP 5/325MG TABLET PO PRN ×2 (13:31→18:52)
--- NOTE | 2019-11-28 18:39 | NUR ---
RN CLOSING NOTES PT RESTING IN BED. A/O X 2-3. PT UNDERSTANDS AND SPEAKS JAPANESE WITH LITTLE POLISH. PT IS ON ROOM AIR, SATURATING 99%. NO SOB OR ANY SIGNS OF ACUTE RESPIRATORY DISTRESS. IV SITE @ MEKA #20 INTACT, PATENT AND FLUSHED. STEVENS CATH CONNECTED TO URINE BAG DRAINING TO YELLOWISH COLORED URINE. NOTED LEFT FOOT WITH SPLINT AND IN FLEXED POSITION. NO PAIM REPORTED AT THIS TIME. ALL MED ADMINISTERED ORDERED. NO SIGNIFICANT CHANGES. SAFETY MEASURES OBSERVED. CALL LIGHT WITHIN REACH. BED LOCKED AND AT LOWEST POSITION WITH SIDE RAILS UP. WILL ENDORSE TO NIGHT NURSE FOR PREM.
--- NOTE | 2019-11-28 19:30 | NUR ---
RN OPENING NOTE RECEIVED PATIENT IN BED RESTING ALERT ORIENTED X2-3 VERBALLY RESPONSIVE ON ROOM AIR 99% NO SOB NOT ACUTE DISTRESS NOTED IV SITE IS ON RIGHT UPPER ARM INTACT PATENT FLUSHED,ON STEVENS CATHETER URINE DRAINING YELLOW AND CLEAR,LEFT LEG IMMOBILIZED,BED IN LOW POSITON AND LOCKED,SIDE RAIL X3 UP,CALL LIGHT WITHIN REACH,CONTINUE TO MONITOR
[2019-11-28 20:00] VITALS: BP_SYST 121; BP_SYST 135; BP_DIAS 53; BP_DIAS 72
--- NOTE | 2019-11-29 02:00 | NUR ---
RN NOTE PATIENT REFUSED TO BE CLEANED AFTER EXPLAINED 3 TIMES OF RISK,CONTINUE TO MONITOR.
[2019-11-29 04:00] VITALS: BP 125/58
--- NOTE | 2019-11-29 06:45 | NUR ---
RN CLOSING NOTE PATIENT REMAINS ON ALERT ORIENTED 2-3 VERBALLY RESPONSIVE NO SOB NOT ACUTE DISTRESS NOTED,ON ROOM AIR O2:99% IV LINE IS ON RIGHT UPPER ARM INTACT PATENT FLUSHED,STEVENS CATHETER IN PLACE DRAINING URINE YELLOW AND CLEAR,PATIENT REFUSED TO BE CLEANED,AFTER EXPLAINED RISKS 3 TIMES STILL REFUSED CONTINUE TO MONITOR,SAFETY MEASURE IMPLEMENTED,KEPT CALL LIGHT WITHIN REACH,ENDORSE NEXT COMING SHIFT FOR CONTINUATION OF CARE.
--- NOTE | 2019-11-29 07:00 | NUR ---
RN OPENING NOTES RECEIVED PT IN BED, A/O X 2-3. PT UNDERSTANDS AND SPEAKS [place] LEONE[place] WITH LITTLE IRAQI. PT IS ON ROOM AIR, SATURATING 99%. NO SOB OR ANY SIGNS OF ACUTE RESPIRATORY DISTRESS. IV SITE @ MEKA #20 INTACT, PATENT AND FLUSHED. STEVENS CATH CONNECTED TO URINE BAG DRAINING TO YELLOWISH COLORED URINE. NOTED LEFT FOOT WITH SPLINT/IMMOBILIZER. SAFETY MEASURES OBSERVED. CALL LIGHT WITHIN REACH. BED LOCKED AND AT LOWEST POSITION WITH SIDE RAILS UP. WILL CONTINUE TO MONITOR.
[2019-11-29] MEDS: NICOTINE PATCH (14MG) 14 MG PATCH.TD24 TD SCH (08:48)
[2019-11-29 12:00] VITALS: BP 126/68
--- NOTE | 2019-11-29 19:14 | NUR ---
RN CLOSING NOTES PT FOR DISCHARGE. REPORT WAS GIVEN TO RAYMOND BOLDEN OF [facility]. PT REFUSED TO HAVE PICTURES OF THE WOUNDS TAKEN. ALL VS ARE WNL. STABLE CONDITION. AWAITS COMMERCIAL CREDIT LEAD. ENDORSED TO UPHOLSTERER OUTSIDE
--- NOTE | 2019-11-29 19:36 | NUR ---
EMT FROM [facility] ARRIVED TO TERMINAL PRESS OPERATOR PT, LATEST V/S 98.3 128/70 HR 80 RR 20 SPO2 98% ON ROOM AIR PT IS A/O X4 AWAKE, BELONGINGS WAS GIVEN MONEY $83.00 WAS ENDORSED TO EMT AND PUT ON BAG, IV LINE WAS REMOVED, CANNULA WAS COMPLETE NO BLEEDING NOTED, PRESSURE DRESSING WAS APPLIED, SAFELY TRANSFER FROM BED TO [facility] ON HIS WAY TO [facility].
--- NOTE | 2019-11-30 16:40 | NUR ---
This SW received a call from Macie from [facility]. Macie wanted to know if the patient remained in the care of [facility]. This SW informed Macie that patient had been discharged to [facility] and provided Macie with contact information of Yuliya [phone] per case management note. SW to remain available for all needs regarding this patient.
== END 2019-11-29 19:40 | DRG 720 ==
LOC: MEDSG1 22:23
PROVIDERS: ADMIT Internal Medicine; ATTEND Nurse Practitioner Acute Care
PROC: 0HB5XZX Excision of Chest Skin, External Approach, Diagnostic (ICD-10-PCS; principal; 2019-11-25)
DX: A41.9 Sepsis, unspecified organism (principal); J18.9 Pneumonia, unspecified organism; N17.0 Acute kidney failure with tubular necrosis; Z59.0 Homelessness; E87.1 Hypo-osmolality and hyponatremia; J44.0 Chronic obstructive pulmonary disease with (acute) lower respiratory infection; D69.6 Thrombocytopenia, unspecified; H70.10 Chronic mastoiditis, unspecified ear; S32.019A Unspecified fracture of first lumbar vertebra, initial encounter for closed fracture; S32.029A Unspecified fracture of second lumbar vertebra, initial encounter for closed fracture; S92.002A Unspecified fracture of left calcaneus, initial encounter for closed fracture; W19.XXXA Unspecified fall, initial encounter; Y92.9 Unspecified place or not applicable; E11.9 Type 2 diabetes mellitus without complications; D64.9 Anemia, unspecified; S90.822A Blister (nonthermal), left foot, initial encounter; L89.896 Pressure-induced deep tissue damage of other site; M62.572 Muscle wasting and atrophy, not elsewhere classified, left ankle and foot; M62.571 Muscle wasting and atrophy, not elsewhere classified, right ankle and foot; F17.200 Nicotine dependence, unspecified, uncomplicated; L82.1 Other seborrheic keratosis; S90.32XA Contusion of left foot, initial encounter; M19.90 Unspecified osteoarthritis, unspecified site; L98.9 Disorder of the skin and subcutaneous tissue, unspecified; M77.9 Enthesopathy, unspecified; H70.90 Unspecified mastoiditis, unspecified ear; S32.9XXA Fracture of unspecified parts of lumbosacral spine and pelvis, initial encounter for closed fracture
CPT/HCPCS: 36415; 71045-TC; 80048-TC; 83735-TC; 84100-TC; 85025-TC; 86480; 86803; 87116; 87206; 94640-TC; 94799-TC; 97112-TC; 97530-TC; A4217; A4218; A6253; G0378; J2270; J2543; J3490; J7050; J7060

== ENCOUNTER 2019-12-05 16:55 | Emergency (ER) | payer MEDICAID ==
[~2019-12-05] VITALS: Ht 172.7 cm; Wt 53.5 kg
--- NOTE | 2019-12-05 17:04 | NUR ---
SALUD FROM SNF FOR URINARY RETENTION X 4 DAYS, UNABLE TO INSERT STEVENS CATH. PT NOTED WITH LOWER ABDOMINAL DISTENTION. NO FEVER. AWAITING FOR MD LEDESMA
[2019-12-05] MEDS ORDERED: TAMS-12 PO (17:11)
[2019-12-05] MEDS ORDERED: TRAM50TA2 PO (17:11)
[2019-12-05] MEDS ORDERED: TYL2T PO (17:11)
--- NOTE | 2019-12-05 17:15 | NUR ---
SEEN AND EVALUATED BY
[2019-12-05] MEDS ORDERED: LIDOCAINE 2% JEL UROJET 10 ML MM ONE ×2 (17:22→17:30)
--- NOTE | 2019-12-05 17:50 | NUR ---
urine collected and sent to lab
[2019-12-05 17:51] LABS: BASOPHILS # (AUTO) 0.1 /CMM (0.0-0.2); BASOPHILS % (AUTO) 1.1 % (0.0-2.0); EOSINOPHILS % (AUTO) 5.4 % (0.0-6.0); HEMATOCRIT 33 % (39-51); HEMOGLOBIN 10.7 g/dL (13.5-17.5); LYMPHOCYTES # (AUTO) 1.9 /CMM (0.8-4.8); LYMPHOCYTES % (AUTO) 24.1 % (20.0-44.0); MEAN CORPUSCULAR HGB CONC 33 g/dl (31.0-36.0); MEAN CORPUSCULAR VOLUME 95 fL (80-96); MONOCYTES # (AUTO) 0.6 /CMM (0.1-1.30); MONOCYTES % (AUTO) 7.6 % (2.0-12.0); NEUTROPHILS % (AUTO) 61.8 % (43.0-81.0); PLATELET COUNT (AUTO) 559 /CMM (150-450); RED BLOOD CELL COUNT(AUTO) 3.45 MIL/uL (4.5-6.0)
[2019-12-05 17:57] LABS: APPEARANCE,URINE CLOUDY (CLEAR); BILIRUBIN,URINE NEGATIVE (NEGATIVE); BLOOD, URINE LARGE Ery/uL (NEGATIVE); COLOR,URINE YELLOW (YELLOW); KETONES,URINE NEGATIVE (NEGATIVE); LEUKOCYTE ESTERASE ,URINE NEGATIVE (NEGATIVE); NITRITE, URINE POSITIVE (NEGATIVE); PH,URINE 6.5 (5.0-8.0); PROTEIN,URINE TRACE mg/dl (NEGATIVE); UGLUCOSE NEGATIVE (NEGATIVE); UROBILINOGEN,URINE 0.2 EU/dL (0.2)
[2019-12-05 18:15] LABS: CALCIUM, SERUM 8.5 mg/dL (8.5-10.1); CREATININE 1.1 mg/dL (0.6-1.3); POTASSIUM 3.7 mmol/L (3.5-5.1)
[2019-12-05 18:23] LABS: ALBUMIN 2.7 g/dL (3.4-5.0); BILIRUBIN,DIRECT 0.1 mg/dL (0.0-0.2); BILIRUBIN,TOTAL 0.4 mg/dL (0.2-1.0); TOTAL PROTEIN, SERUM 7.4 g/dL (6.4-8.2)
[2019-12-05 18:45] LABS: BACTERIA,URINE 2+ /HPF (None Seen)
[2019-12-05 18:46] LABS: SQUAMOUS EPITHELIAL CELL,UR 0-2 /HPF (None Seen)
[2019-12-05] MEDS ORDERED: CEFTRIAXONE 1 G in IV D5W 50 ML IV ONE (19:00)
--- NOTE | 2019-12-05 20:00 | NUR ---
REKALENRT GIVEN TO KIMI ANDRES FOR PREM AT [facility]
[2019-12-05 20:47] VITALS: BP 130/74
--- NOTE | 2019-12-05 20:47 | NUR ---
REPORT GIVEN TO EMS, PT STABLE TO BE DC'ED HOME
== END 2019-12-05 20:48 ==
LOC: ER 16:57
DX: R33.9 Retention of urine, unspecified (principal); N30.90 Cystitis, unspecified without hematuria; D64.9 Anemia, unspecified; J44.9 Chronic obstructive pulmonary disease, unspecified; N17.9 Acute kidney failure, unspecified; E11.9 Type 2 diabetes mellitus without complications; Z79.899 Other long term (current) drug therapy
CPT/HCPCS: 36415; 80048; 80076; 81001; 83690; 83735; 85025; 87086; 96365; 99284; J0696; J3490; J7060; 81000-TC